=== PATIENT | male | born 1945 | race Caucasian/White ===

== ENCOUNTER 2018-12-06 01:56 | Observation (INO) | payer OTHER ==
[~2018-12-06] VITALS: Ht 165.1 cm; Wt 65.7 kg
[2018-12-07] VITALS (8 sets, daily range): BP systolic 121–156; BP diastolic 58–76; PULSE 58–65; RESP 16–17; Ht 165.1 cm; Wt 65.7 kg
[2018-12-07] MEDS ORDERED: GLIP10TA14 PO (03:58)
[2018-12-07] MEDS ORDERED: ASPI-817 PO (03:58)
[2018-12-07] MEDS ORDERED: PARO-37 PO (03:58)
[2018-12-07] MEDS ORDERED: AMIO200T4 PO (03:58)
[2018-12-07] MEDS ORDERED: ISOS30TA67 PO (03:58)
[2018-12-07] MEDS ORDERED: ENAL10TA PO (03:58)
[2018-12-07] MEDS ORDERED: ATOR-2 PO (03:58)
[2018-12-07] MEDS ORDERED: CLOP75TA27 PO (03:58)
[2018-12-07] MEDS ORDERED: METO25TA4 PO (03:58)
[2018-12-07] MEDS ORDERED: SITA100T11 PO (03:58)
[2018-12-07] MEDS ORDERED: LANT3I SC (03:58)
[2018-12-07] MEDS ORDERED: RIVA20TA5 PO (03:58)
[2018-12-07] MEDS ORDERED: ACETAMINOPHEN 325 MG TAB PO PRN (04:30)
[2018-12-07] MEDS ORDERED: GLUCOSE GEL 15 GRAM TUBE BUCCAL PRN (04:30)
[2018-12-07] MEDS ORDERED: morphine 2 MG INJ IV PRN (04:30)
[2018-12-07] MEDS ORDERED: GLUCAGON 1 MG INJ IM PRN (04:30)
[2018-12-07] MEDS ORDERED: HYDROCODONE/APAP (5/325) TAB PO PRN (04:30)
[2018-12-07] MEDS ORDERED: DOCUSATE SODIUM 100 MG CAP PO PRN (04:30)
[2018-12-07] MEDS ORDERED: ONDANSETRON 4 MG TAB PO PRN (04:30)
[2018-12-07] MEDS ORDERED: GLUCOSE GEL 15 GRAM TUBE PO PRN ×2 (04:30)
[2018-12-07] MEDS ORDERED: DEXTROSE 50% 50 ML SYRINGE IV PRN ×2 (04:30)
[2018-12-07] MEDS ORDERED: NACL 0.9% 3 ML SYG IV SCH (04:30)
[2018-12-07] MEDS ORDERED: glipiZIDE 10 MG TAB PO SCH (07:25)
[2018-12-07] MEDS ORDERED: ACCU-CHEK XX SCH (07:25)
[2018-12-07] MEDS ORDERED: ENALAPRIL 10 MG TAB PO SCH (09:00)
[2018-12-07] MEDS ORDERED: ASPIRIN (EC) 81 MG TAB PO SCH (09:00)
[2018-12-07] MEDS ORDERED: AMIODARONE 200 MG TAB PO SCH (09:00)
[2018-12-07] MEDS ORDERED: CLOPIDOGREL 75 MG TAB PO SCH (09:00)
[2018-12-07] MEDS ORDERED: PAROXETINE 20 MG TAB PO SCH (09:00)
[2018-12-07] MEDS ORDERED: NON-FORMULARY/PATIENT OWN MED (Sitagliptin* (Januvia*) 100 MG) PO SCH (09:00)
[2018-12-07] MEDS ORDERED: ISOSORBIDE MONONITRATE(SR)30 MG TAB PO SCH (09:00)
[2018-12-07] MEDS ORDERED: LINAGLIPTIN 5 MG TABLET PO SCH (09:00)
--- NOTE | 2018-12-07 09:25 | PDOCDIS ---
Discharge Instructions CONDITION Pxyof0Yv Patient Condition: Hoxys4h Good HOME CARE INSTRUCTIONS: Jueic2Mq Diet Instructions: [id number] Activity Restrictions: [id number] No Restrictions FOLLOW UP/APPOINTMENTS Follow-up Plan pcp 1 week NIC MIMS MD Dec 07, 2018 09:25
[2018-12-07] MEDS: METOPROLOL 25 MG TAB PO SCH ×2 (09:36→20:13)
[2018-12-07] MEDS: FAMOTIDINE 20 MG TAB PO SCH ×2 (09:36→20:03)
--- NOTE | 2018-12-07 10:45 | HP ---
DATE OF ADMISSION: 12/07/2018 CHIEF COMPLAINT: Nausea and vomiting. HISTORY OF PRESENT ILLNESS: A 73-year-old male with presumed history of coronary artery disease and chronic atrial fibrillation, was transferred from [facility] Emergency Room after he present ed with complaints of nausea and vomiting. The patient is a very poor historian. He did not have an y chest pain on the day of admission. However, he reports chest discomfort the day prior to admissio n. The patient is not aware of any cardiac history. However, a review of his medications revealed t hat the patient is on: 1. Plavix 2. Metoprolol. 3. Amiodarone. 4. Xarelto. The patient denied any chest pain at the time of my visit. PAST MEDICAL HISTORY: 1. Coronary artery disease. 2. History of acute non-STEMI. 3. Paroxysmal atrial fibrillation. 4. Hypertension. 5. Type 2 diabetes mellitus. 6. Hyperlipidemia. MEDICATIONS PRIOR TO ADMISSION: 1. Lipitor 80 mg at bedtime. 2. Plavix 75 mg daily. 3. Glipizide 10 mg daily. 4. Metoprolol 25 mg b.i.d. 5. Xarelto 20 mg daily. 6. Amiodarone 200 mg daily. 7. Enalapril 10 mg daily. 8. Isosorbide mononitrate 30 mg daily. 9. Aspirin 81 mg daily. 10. Paroxetine 20 mg daily. 11. Lantus insulin 18 units subQ daily. 12. Januvia 100 mg daily. SOCIAL HISTORY: The patient denies tobacco or alcohol use. PHYSICAL EXAMINATION: GENERAL: Well-developed, well-nourished male who is in no apparent distress. VITAL SIGNS: Stable. He is afebrile. HEENT: Extraocular muscles intact. Pupils equal and reactive to light bilaterally. Sclerae are ani cteric. Oropharynx is clear and moist. NECK: Supple, no JVD, no carotid bruits. LUNGS: Clear to auscultation bilaterally. CARDIAC: Regular rate and rhythm. No murmurs or gallops. ABDOMEN: Soft, nontender, nondistended, normoactive bowel sounds. EXTREMITIES: No clubbing, cyanosis, or edema. NEUROLOGICAL: Decreased sensation in bilateral distal lower extremities. LABORATORY DATA: Cholesterol is 163, LDL 95, HDL 33. Initial troponin less than 0.012. Hemoglobin A1c is 10.8. ASSESSMENT: 1. A 73-year-old male with atypical chest pain. 2. Nausea and vomiting, resolved. 3. History of [id number]-elevation myocardial infarction in the past. 4. Chronic atrial fibrillation. 5. Hypertension. 6. Type 2 diabetes mellitus. 7. Hyperlipidemia. PLAN: Place in tele observation. Proceed with nuclear stress test. Resume home medication. Discha rge planning if the stress test is normal. Dictated By: NIC MIMS MD SK/NTS Conf#: [id number] DID#: [id number] CC: JONAH ARZOLA MD;*EndCC*
[2018-12-07] MEDS ORDERED: INSULIN ASPART [NOVOLOG] 3 ML PEN SC SCH (11:50)
[2018-12-07] MEDS: INSULIN ASPART [NOVOLOG] 3 ML PEN SC SCH ×3 (11:50→20:14)
[2018-12-07] MEDS ORDERED: REGADENOSON 0.4 MG/5 ML SYG ONE (13:42)
--- NOTE | 2018-12-07 16:08 | CONS ---
Assessment/Plan Assessment/Plan Hospital Course (Demo Recall) Vomiting ? Chest pain Normal nuclear cardiac perfusion study 12/07/2018 CAD with history of angioplasty Preserved ejection fraction Hypertension Dyslipidemia On anticoagulation -Unfortunate patient is on a good historian and the story keeps changing. Initially complaints of vomiting and denies chest pain. Then states his been having off-and-on chest pain for 6-7 years which is nonexertional. He denies any history of angioplasty but as per the records, patient did have a myocardial infarction and angioplasty in outside hospital. Furthermore he is on anticoagulation for unclear reason. -Serial cardiac enzymes remain negative, ECG with no significant ischemic abnormalities, nuclear cardiac perfusion study performed today with no evidence of perfusion defects, echocardiogram with preserved ejection fraction. -He currently denies any symptoms of chest pain or shortness of breath. No further inpatient cardiac workup needed at the current time. Consultation Date/Type/Reason Admit Date/Time Dec 07, 2018 at 02:53 Type of Consult Cardiology Reason for Consultation Cardiology evaluation Date/Time of Note DATE: 12/07/18 TIME: 16:04 Hx of Present Illness This is a 73-year-old male past medical history of coronary artery disease, hypertension, dyslipidemia who presents with vomiting. Unfortunate, patient is not a good historian and the story keeps changing. Initially he tells me he has been vomiting for 2 or 3 days which has since resolved. He initially denies any chest pain or shortness of breath but then later says he has been having chest p ain off and on for 6-7 years. Denies any cardiac history but as per the records, history of an NSTEMI and angioplasty at an outside facility. He denies any current chest pain, shortness of breath, palpitations. He works as a security systems manager and with ambulation, denies any symptoms. He was spoken to via cathode ray tube salvage processor 12 point review of systems was performed with all pertinent positives and negatives mentioned above and all else is negative Past Medical History Medical History: coronary artery disease, high cholesterol, hypertension Home Meds Reported Medications Sitagliptin* (Januvia*) 100 Mg Tablet, 100 MG PO DAILY, #30 TAB 12/07/18 Rivaroxaban* (Xarelto*) 20 Mg Tablet, 20 MG PO WITH DINNER, TAB 12/07/18 Paroxetine Hcl* (Paroxetine*) 20 Mg Tablet, 20 MG PO DAILY, TAB 12/07/18 Metoprolol Tartrate* (Lopressor*) 25 Mg Tablet, 25 MG PO BID, #60 TAB 12/07/18 Isosorbide Mononitrate* (Isosorbide Mononitrate*) 30 Mg Tab.er.24h, 30 MG PO DAILY, TAB 12/07/18 Insulin Glargine* (Lantus*) 100 Unit/Ml Soln, 18 UNIT SC QHS, #1 VIAL 12/07/18 Glipizide* (Glipizide*) 10 Mg Tablet, 10 MG PO AC BREAKFAST, TAB 12/07/18 Enalapril Maleate* (Enalapril Maleate*) 10 Mg Tablet, 10 MG PO DAILY, TAB 12/07/18 Clopidogrel Bisulfate (Clopidogrel) 75 Mg Tablet, 75 MG PO DAILY, #30 TAB 12/07/18 Atorvastatin* (Atorvastatin*) 80 Mg Tablet, 80 MG PO QHS, #30 TAB 12/07/18 Aspirin* (Aspirin* EC) 81 Mg Tablet.dr, 81 MG PO DAILY, TAB 12/07/18 Amiodarone Hcl* (Amiodarone Hcl*) 200 Mg Tablet, 200 MG PO DAILY, #30 TAB 12/07/18 Medications Current Medications Amiodarone HCl (Cordarone) 200 mg DAILY PO Last administered on 12/07/18at 09:36; Admin Dose 200 MG; Start 12/07/18 at 09:00 Aspirin (Halfprin) 81 mg DAILY PO Last administered on 12/07/18at 09:37; Admin Dose 81 MG; Start 12/07/18 at 09:00 Atorvastatin Calcium (Lipitor) 80 mg QHS PO ; Start 12/07/18 at 21:00 Clopidogrel Bisulfate (plaVIX) 75 mg DAILY PO Last administered on 12/07/18at 09:37; Admin Dose 75 MG; Start 12/07/18 at 09:00 Enalapril Maleate (Vasotec) 10 mg DAILY PO Last administered on 12/07/18at 09:36; Admin Dose 10 MG; Start 12/07/18 at 09:00 Glipizide (Glucotrol) 10 mg AC BREAKFAST PO Last administered on 12/07/18at 09:37; Admin Dose 10 MG; Start 12/07/18 at 07:25 Insulin Glargine (Lantus) 18 units QHS SC ; Start 12/07/18 at 21:00 Isosorbide Mononitrate (Imdur) 30 mg DAILY PO Last administered on 12/07/18at 09:36; Admin Dose 30 MG; Start 12/07/18 at 09:00 Metoprolol Tartrate (Lopressor) 25 mg BID PO Last administered on 12/07/18at 09:36; Admin Dose 25 MG; Start 12/07/18 at 09:00 Paroxetine HCl (Paxil) 20 mg DAILY PO Last administered on 12/07/18at 09:36; Admin Dose 20 MG; Start 12/07/18 at 09:00 Rivaroxaban (Xarelto) 20 mg WITH DINNER PO ; Start 12/07/18 at 17:55 Miscellaneous Information 1 ea NOTE XX ; Start 12/07/18 at 04:30 Glucose (Glutose) 15 gm Q15M PRN PO DECREASED GLUCOSE; Start 12/07/18 at 04:30 Glucose (Glutose) 22.5 gm Q15M PRN PO DECREASED GLUCOSE; Start 12/07/18 at 04:30 Dextrose (D50w Syringe) 25 ml Q15M PRN IV DECREASED GLUCOSE; Start 12/07/18 at 04:30 Dextrose (D50w Syringe) 50 ml Q15M PRN IV DECREASED GLUCOSE; Start 12/07/18 at 04:30 Glucagon (Glucagen) 1 mg Q15M PRN IM DECREASED GLUCOSE; Start 12/07/18 at 04:30 Glucose (Glutose) 15 gm Q15M PRN BUCCAL DECREASED GLUCOSE; Start 12/07/18 at 04:30 Linagliptin (Tradjenta) 5 mg DAILY PO Last administered on 12/07/18at 09:37; Admin Dose 5 MG; Start 12/07/18 at 09:00 IV Flush (NS 3 ml) 3 ml PER PROTOCOL IV ; Start 12/07/18 at 04:30 Ondansetron HCl (Zofran Tab) 4 mg Q6H PRN PO NAUSEA/VOMITING; Start 12/07/18 at 04:30 Acetaminophen (Tylenol Tab) 650 mg Q6H PRN PO .PAIN 1-3 OR TEMP; Start 12/07/18 at 04:30 Acetaminophen/ Hydrocodone Bitart ([place] (5/325)) 1 tab Q6H PRN PO .PAIN 4-6; Start 12/07/18 at 04:30 Morphine Sulfate (morphine) 2 mg Q4H PRN IV .PAIN 7-10; Start 12/07/18 at 04:30 Docusate Sodium (Colace) 100 mg Q12H PRN PO .CONSTIPATION; Start 12/07/18 at 04:30 Famotidine (Pepcid) 20 mg Q12 PO Last administered on 12/07/18at 09:36; Admin Dose 20 MG; Start 12/07/18 at 09:00 Diagnostic Test (Pha) (Accu-Chek) 1 ea 02 XX ; Start 12/08/18 at 02:00 Insulin Aspart (Novolog Insulin Pen) NOVOLOG *MODERATE* ALGORITHM WITH MEALS BEDTIME SC ; Start 12/07/18 at 11:50 Allergies: Coded Allergies: No Known Allergies (Verified Allergy, Unknown, 12/07/18) Past Surgical History Past Surgical Hx: angioplasty Family History Significant Family History: no pertinent family hx Social History Smoking Status: Never smoker Exam/Review of Systems Vital Signs Vitals Vital Signs Date Temp Pulse Resp B/P (MAP) Pulse Ox O2 O2 Flow FiO2 Time Delivery Rate 12/07/18 98.3 61 16 144/65 98 Room Air 15:46 (91) Exam Constitutional: alert, oriented (No apparent distress) Head: normocephalic Respiratory: clear to auscultation, normal air movement Cardiovascular: regular rate and rhythm (S1-S2 heard) Gastrointestinal: soft, non-tender, bowel sounds Extremities: other (No significant edema) Labs Results 24hrs Laboratory Tests Test 12/07/18 03:29 12/07/18 05:30 12/07/18 07:59 12/07/18 09:34 Bedside Glucose 153 232 H 233 H Erythrocyte 7 Sedimentation Rate D-Dimer 328.51 D-Dimer Comment Hemoglobin A1c 10.8 H Magnesium Level 1.9 Creatine Kinase 66 Creatine Kinase 3.3 Index Creatinine Kinase MB 2.18 (Mass) Troponin I < 0.012 Triglycerides Level 175 H Cholesterol Level 163 LDL Cholesterol, 95 Calculated HDL Cholesterol 33 Cholesterol/HDL 4.9 Ratio Thyroid Stimulating 1.150 Hormone (TSH) Test 12/07/18 10:54 12/07/18 11:54 Creatine Kinase 65 Creatine Kinase 3.3 Index Creatinine Kinase MB 2.17 (Mass) Troponin I < 0.012 Bedside Glucose 222 H Imaging Imaging ECG sinus rhythm, normal QRS duration, nonspecific ST abnormalities Medications Medications Current Medications Amiodarone HCl (Cordarone) 200 mg DAILY PO Last administered on 12/07/18 09:36; Admin Dose 200 MG; Start 12/07/18 at 09:00 Aspirin (Halfprin) 81 mg DAILY PO Last administered on 12/07/18 09:37; Admin Dose 81 MG; Start 12/07/18 at 09:00 Atorvastatin Calcium (Lipitor) 80 mg QHS PO ; Start 12/07/18 at 21:00 Clopidogrel Bisulfate (plaVIX) 75 mg DAILY PO Last administered on 12/07/18 09:37; Admin Dose 75 MG; Start 12/07/18 at 09:00 Enalapril Maleate (Vasotec) 10 mg DAILY PO Last administered on 12/07/18 09:36; Admin Dose 10 MG; Start 12/07/18 at 09:00 Glipizide (Glucotrol) 10 mg AC BREAKFAST PO Last administered on 12/07/18 09:37; Admin Dose 10 MG; Start 12/07/18 at 07:25 Insulin Glargine (Lantus) 18 units QHS SC ; Start 12/07/18 at 21:00 Isosorbide Mononitrate (Imdur) 30 mg DAILY PO Last administered on 12/07/18 09:36; Admin Dose 30 MG; Start 12/07/18 at 09:00 Metoprolol Tartrate (Lopressor) 25 mg BID PO Last administered on 12/07/18 09:36; Admin Dose 25 MG; Start 12/07/18 at 09:00 Paroxetine HCl (Paxil) 20 mg DAILY PO Last administered on 12/07/18 09:36; Admin Dose 20 MG; Start 12/07/18 at 09:00 Rivaroxaban (Xarelto) 20 mg WITH DINNER PO ; Start 12/07/18 at 17:55 Miscellaneous Information 1 ea NOTE XX ; Start 12/07/18 at 04:30 Glucose (Glutose) 15 gm Q15M PRN PO DECREASED GLUCOSE; Start 12/07/18 at 04:30 Glucose (Glutose) 22.5 gm Q15M PRN PO DECREASED GLUCOSE; Start 12/07/18 at 04:30 Dextrose (D50w Syringe) 25 ml Q15M PRN IV DECREASED GLUCOSE; Start 12/07/18 at 04:30 Dextrose (D50w Syringe) 50 ml Q15M PRN IV DECREASED GLUCOSE; Start 12/07/18 at 04:30 Glucagon (Glucagen) 1 mg Q15M PRN IM DECREASED GLUCOSE; Start 12/07/18 at 04:30 Glucose (Glutose) 15 gm Q15M PRN BUCCAL DECREASED GLUCOSE; Start 12/07/18 at 04:30 Linagliptin (Tradjenta) 5 mg DAILY PO Last administered on 12/07/18at 09:37; Admin Dose 5 MG; Start 12/07/18 at 09:00 IV Flush (NS 3 ml) 3 ml PER PROTOCOL IV ; Start 12/07/18 at 04:30 Ondansetron HCl (Zofran Tab) 4 mg Q6H PRN PO NAUSEA/VOMITING; Start 12/07/18 at 04:30 Acetaminophen (Tylenol Tab) 650 mg Q6H PRN PO .PAIN 1-3 OR TEMP; Start 12/07/18 at 04:30 Acetaminophen/ Hydrocodone Bitart ([place] (5/325)) 1 tab Q6H PRN PO .PAIN 4-6; Start 12/07/18 at 04:30 Morphine Sulfate (morphine) 2 mg Q4H PRN IV .PAIN 7-10; Start 12/07/18 at 04:30 Docusate Sodium (Colace) 100 mg Q12H PRN PO .CONSTIPATION; Start 12/07/18 at 04:30 Famotidine (Pepcid) 20 mg Q12 PO Last administered on 12/07/18at 09:36; Admin Dose 20 MG; Start 12/07/18 at 09:00 Diagnostic Test (Pha) (Accu-Chek) 1 ea 02 XX ; Start 12/08/18 at 02:00 Insulin Aspart (Novolog Insulin Pen) NOVOLOG *MODERATE* ALGORITHM WITH MEALS BEDTIME SC ; Start 12/07/18 at 11:50 Twin Tracy DO Dec 07, 2018 16:08
--- NOTE | 2018-12-07 16:10 | RADRPT ---
Echocardiogram Report Patient Name: Alec ZEE ID: [id number] : 1945 (73y 11m)Study Date: 12/07/2018 3:01:14 PM Gender: MAccession #: [id number] Tech: Dandre [facility] Location: [address] Ref.Physician: TWIN TRACY Height(Cm): BSA: Weight(Kg): Quality: AdequateAccount #: Procedures: Echocardiographic Report: Transthoracic echocardiogram with complete 2D, M-Mode, and doppler examination. Indications: Chest Pain. Measurements: 2D/M Mode Doppler Measurement Value Normal Range Measurement Value Normal Range LVIDd 2D 4.6 [ 4.2 - 5.8 ] cm AV Peak Isma 1.1 [ 100.0 - 170.0 ] cm/sec LVIDs 2D 2.9 [ 2.5 - 4.0 ] cm AV Peak PG 5.0 [ 2.0 - 9.0 ] mmHg LVPWd 2D 1.2 [ 0.6 - 1.0 ] cm LVOT Peak Isma 1.1 [ 70.0 - 110.0 ] cm/sec IVSd 2D 1.2 [ 0.6 - 1.0 ] cm LVOT Peak PG 4.0 [ 2.0 - 6.0 ] mmHg AoR Diam 2D 2.1 [ 2.6 - 3.4 ] cm MV E Peak Isma 0.7 [ 60.0 - 130.0 ] cm/sec EDV 2D 96.3 [ 62.0 - 150.0 ] ml MV A Peak Isma 0.9 [ 100.0 - 120.0 ] cm/sec ESV 2D 31.4 [ 21.0 - 61.0 ] ml MV E/A 0.8 [ 0.8 - 1.5 ] ratio EF 2D 67.4 [ 52.0 - 72.0 ] percent MV Decel Time 292 [ 104 - 258 ] msec LA Dimen 2D 3.4 [ 3.0 - 4.0 ] cm Lat E` Isma 0.1 [ 10.0 - 15.0 ] cm/sec Lateral E/E` 12.0 [ 1.0 - 2.0 ] ratio MV E/A 0.8 [ 0.8 - 1.5 ] ratio TR Peak Isma 2.4 [ 100.0 - 280.0 ] cm/sec TR Peak PG 23.0 mmHg RVSP 26.0 [ 10.0 - 36.0 ] mmHg Findings: Left Ventricle: Normal left ventricular systolic function. Normal left ventricular cavity size. Left ventricular wall thickness upper limits of normal. Ejection fraction is visually estimated at 65 %. Tissue Doppler/Mitral Doppler indices are consistent with impaired relaxation (Stage I diastolic dysfunction). Right Ventricle: Normal right ventricular size. Normal right ventricular systolic function. Left Atrium: The left atrium is normal in size. Right Atrium: The right atrium is normal in size. Mitral Valve: Mild mitral leaflet calcification. Mild mitral annular calcification. Trace mitral regurgitation. Aortic Valve: No significant aortic stenosis or insufficiency. Aortic cusps appear mildly calcified. Tricuspid Valve: Normal appearance of the tricuspid valve. Estimated peak PA systolic pressure 26 mmHg. There is trace tricuspid regurgitation. Pericardium: Normal pericardium with no significant pericardial effusion. Aorta: Normal aortic root. IVC: Normal size and normal respiratory collapse consistent with normal right atrial pressure. Conclusions: Normal left ventricular systolic function. Normal left ventricular cavity size. Left ventricular wall thickness upper limits of normal. Ejection fraction is visually estimated at 65 %. Tissue Doppler/Mitral Doppler indices are consistent with impaired relaxation (Stage I diastolic dysfunction). Normal right ventricular size. Normal right ventricular systolic function. The left atrium is normal in size. The right atrium is normal in size. No significant valvular stenosis or regurgitation seen. Normal pericardium with no significant pericardial effusion. Electronically Signed By: Twin Tracy 2018-12-07 16:10:30 PDT
[2018-12-07] MEDS ORDERED: RIVAROXABAN 20 MG TABLET PO SCH (17:55)
[2018-12-07] MEDS ORDERED: ATORVASTATIN 80 MG TAB PO SCH (21:00)
[2018-12-07] MEDS ORDERED: INSULIN GLARGINE [LANTus] (100 UNITS/ML) SYG SC SCH (21:00)
[2018-12-08] MEDS ORDERED: ACCU-CHEK XX SCH ×2 (02:00)
== END 2018-12-07 21:39 | disposition home or self-care (01) ==
LOC: TEL 12-07 02:53 → INTOOBSV 12-07 02:53
PROVIDERS: ADMIT Internal Medicine; ATTEND Internal Medicine
DX: R07.9 Chest pain, unspecified (principal); I48.2 Chronic atrial fibrillation; I10 Essential (primary) hypertension; E11.9 Type 2 diabetes mellitus without complications; E78.5 Hyperlipidemia, unspecified; I25.2 Old myocardial infarction; I25.10 Atherosclerotic heart disease of native coronary artery without angina pectoris; Z98.61 Coronary angioplasty status; Z79.01 Long term (current) use of anticoagulants; Z79.82 Long term (current) use of aspirin; Z79.4 Long term (current) use of insulin
CPT/HCPCS: 78452; 80061; 82550; 82553; 82962; 83036; 83735; 84443; 84484; 85378; 85651; 93017; 93306; A9500; A9505; G0378; J1815; J2785; 99217